=== PATIENT | female | born 1960 | race Caucasian/White ===

== ENCOUNTER → 2023-04-22 06:33 | Day surgery (SDC) | payer BC, SELFPAY | LOC: GI 06:33 | PROVIDERS: ATTENDING PHYSICIAN Specialist | DX: Z12.11 Encounter for screening for malignant neoplasm of colon (principal); K63.5 Polyp of colon; Z86.010 Personal history of colon polyps | CPT/HCPCS: 45385; 88305 ==

== ENCOUNTER → 2023-07-08 07:57 | Outpatient (REF) | payer BC, SELFPAY | LOC: WDC 07:57 | PROVIDERS: ATTENDING PHYSICIAN Physician Assistant Medical | DX: Z12.31 Encounter for screening mammogram for malignant neoplasm of breast (principal) | CPT/HCPCS: 77063; 77067 ==

== ENCOUNTER 2023-08-14 08:36 | Emergency (ER) | payer BC, SELFPAY ==
[2023-08-14 08:38] VITALS: BP 160/81
[2023-08-14 08:56] VITALS: BMI 34.9
[2023-08-14 09:12] LABS: % Basophils 0.1 % (0-2); % Immature Granulocytes 0.2 % (0-0.5); % Lymphocytes 3.4 % (20.5-51.1); % Monocytes 3.9 % (1.7-9.3); % Neutrophils 92.4 % (42.2-75.2); Absolute Lymphocytes 0.3 10^3/uL (1.2-3.4); Absolute Monocytes 0.3 10^3/uL (0.1-0.6); Absolute Neutrophils 7.8 10^3/uL (1.4-6.5); Hematocrit 37.2 % (37.0-47.0); Hemoglobin 13.5 g/dL (12.0-16.0); Mean Corp Hgb Conc. 36.3 g/dL (33.0-37.0); Mean Corpuscular Hgb 32.3 pg (27.0-31.0); Mean Platelet Volume 10.9 fL (7.4-10.4); Nucleated Red Blood Cells % 0 %; Platelet Count 305 10^3/uL (130-400); Red Blood Cell Count 4.18 10^6/uL (4.20-5.40); Red Cell Dist. Width 12.8 % (11.5-14.5); White Blood Cell Count 8.4 10^3/uL (4.8-10.8)
--- NOTE | 2023-08-14 09:14 | ED.GENMED ---
History of Present Illness
General
Chief Complaint: Abdominal Symptoms
Time Seen by Provider: 08/14/23 08:54
History of Present Illness
History of Present Illness:
63-year-old female presents emergency department for evaluation of acute onset of upper abdominal discomfort associated with nausea and vomiting beginning last night. She has been unable to tolerate any p.o. fluids. She states symptoms began
shortly after eating [employer] and her republican has similar symptoms. Reports a moderate headache at this time. No history of abdominal surgeries. No recent international travel.
Past History
Past History
ED Past Medical History: Other (Viral meningitis 20 years ago)
ED Past Surgical History: Orthopedic (left hip replacement)
Social History
Tobacco: Non-smoker
Alcohol: Occasional
Family History
Family History: Other (Mother with multiple sclerosis)
Review of Systems
Review of Systems
Allergies reviewed?: Yes
All Other Systems: ROS reviewed and negative except as documented in HPI and ROS
Phy Exam
Physical Exam
Physical Exam:
GEN: Well appearing, NAD, WDWN
HEENT: Oral mucosa moist, no scleral icterus
Cardiac: Regular rate and rhythm, no murmurs
Lung: No respiratory distress, no tachypnea
Abdomen: Soft, mild tenderness to the epigastrium, no rigidity or peritoneal signs, negative San's
MSK: No gross deformity or injuries
Skin: Good color, no pallor or jaundice, no rashes
Neuro: AO x3, moves all extremities freely
Psych: Calm, cooperative
Course
Orders/Labs/Results
Orders:
Orders
08/14/23 08:48
IV Insert/Care/Rem.- Treatment PRN
08/14/23 09:02
Basic Metabolic Panel Urgent
Complete Blood Count/With Diff Urgent
08/14/23 09:08
0.9% Sodium Chloride 1000 ml [Nss] 1,000 ml IV BOLUS
Ketorolac [Toradol] 15 mg IV NOW STA
Ondansetron Injectable [Zofran] 4 mg IV NOW STA
08/14/23 09:36
Lipase Routine
Mcsiw-Yjko-Rkzdwfv Routine
Potassium Routine
08/14/23 09:42
HYDROmorphone [Dilaudid] 0.5 mg IV NOW STA
Abnormal Lab Results
08/14/23
09:02
RBC 4.18 L 10^6/uL
(4.20-5.40)
MCH 32.3 H pg
(27.0-31.0)
MPV 10.9 H fL
(7.4-10.4)
Absolute Neuts (auto) 7.8 H 10^3/uL
(1.4-6.5)
Absolute Lymphs (auto) 0.3 L 10^3/uL
(1.2-3.4)
Neutrophils % 92.4 H %
(42.2-75.2)
Lymphocytes % 3.4 L %
(20.5-51.1)
Creatinine 0.5 L mg/dL
(0.6-1.0)
Glucose 144 H mg/dl
(70-99)
08/14/23 09:02
08/14/23 09:36
Vital Signs
Initial and Last Documented VS:
Initial Vital Signs
Temp Pulse Resp BP Pulse Ox
97.9 F 79 16 160/81 97
08/14/23 08:38 08/14/23 08:38 08/14/23 08:38 08/14/23 08:38 08/14/23 08:38
Last Documented Vital Signs
Temp Pulse Resp BP Pulse Ox
97.9 F 75 16 124/64 98
08/14/23 08:38 08/14/23 11:01 08/14/23 08:38 08/14/23 11:01 08/14/23 11:01
MDM/Problems Addressed
MDM/Problems Addressed:
Likely self-limited viral syndrome versus food poisoning. No indication for stool culture testing as she is not immunocompromise. Given IV fluids and antiemetics as well as pain medicine in the emergency department. She has a benign abdominal
exam thus do not see any indication for abdominal imaging. Do not suspect biliary disease given lack of right upper quadrant tenderness. Liver function enzymes are reassuring. Discussed supportive care, discharge with antiemetics
*Critical Care Note
Total Time (30-74mins, 75-104mins- exclusive of procedures): Not Applicable
ED Attending Note
-
Portions of this chart may have been created with voice recognition software.� Occasional wrong word or��sound alike� substitutions may have occurred due to the inherent limitations of voice recognition software.
Discharge Plan
Departure
Patient Disposition: Home (Routine Discharge)
Date of Disposition: 08/14/23
Time of Disposition: 10:41
Patient with high blood pressure during this ER visit?: No
Discharge Problem:
Gastroenteritis
Instructions: Food poisoning
Prescriptions:
New
ondansetron 4 mg tablet,disintegrating
4 mg PO TIDPRN PRN (Reason: nausea/vomiting) Qty: 10 0RF
oxycodone 5 mg tablet
5 mg PO Q8H PRN (Reason: Pain) Qty: 8 0RF
No Action
citalopram 10 MG tablet
10 mg PO DAILY
aspirin 325 MG tablet
325 mg PO DAILY Qty: 28 0RF
Rx Instructions:
Take daily x4 weeks for blood clot prevention.
docusate sodium 100 MG capsule
100 mg PO BID 0RF
cholecalciferol (vitamin D3) 2,000 UNITS tablet
2,000 units PO DAILY Qty: 30 0RF
oxycodone 5 MG tablet
5 mg PO Q4HPRN PRN (Reason: moderate-severe pain) Qty: 15 0RF
Patient Comments:
07/08/2020: last filled 06/25/20, 40 tabs for 7 days from [facility]
Rx Instructions:
1 tab moderate pain or 2 if pain severe
Dx total joint replacement
ongoing therapy
gabapentin 100 MG capsule
200 mg PO BID Qty: 20 0RF
Rx Instructions:
Take twice a day for neuropathic pain
famotidine 20 MG tablet
20 mg PO HS Qty: 14 0RF
Rx Instructions:
Take nightly while on Meloxicam.
acetaminophen [Tylenol Extra Strength] 500 MG tablet
1,000 mg PO Q6HPRN PRN (Reason: mild pain)
sennosides [senna] 1 TABLET tablet
2 tab PO HS Qty: 30 0RF
levofloxacin 750 mg tablet
750 mg PO DAILY Qty: 6 0RF
Referrals:
Steven Salazar PA-C [Family Provider] -
Interventions
Interventions:
*Risk Screen - Suicide Last Done: 08/14/23 09:06
*General Assessment Last Done: 08/14/23 09:06
*Neglect/Abuse Screening Last Done: 08/14/23 09:06
ED- Fall Risk Assessment Last Done: 08/14/23 11:03
*ED COVID-19 Vaccine History Last Done: 08/14/23 08:38
*Nursing Disposition Last Done: 08/14/23 11:03
KT-Pizylo-Qhqwkzzkfc Assessment Last Done: 08/14/23 09:06
Discharge Date and Time
Discharge Date/Time: 08/14/23 11:05
Print Language: SINHALA
[2023-08-14] MEDS: TORADOL 15 MG IV (09:17)
[2023-08-14] MEDS: NSS 1000 IV (09:17)
[2023-08-14] MEDS: ZOFRAN 4 MG IV (09:17)
[2023-08-14 09:32] LABS: Blood Urea Nitrogen 16 mg/dl (7-17); Calcium 8.8 mg/dl (8.4-10.2); Carbon Dioxide 23 mmol/L (22-30); Chloride 107 mmol/L (98-107); Estimated Creatinine Clearance 104 ml/min; Glucose 144 mg/dl (70-99); Sodium 138 mmol/L (135-145); eGFR > 60.00
[2023-08-14] MEDS: DILAUDID 0.5 MG IV (09:51)
[2023-08-14 10:02] LABS: ALT (SGPT) 16 U/L (0-35); AST (SGOT) 22 U/L (14-36); Alkaline Phosphatase 59 U/L (38-126); Direct Bilirubin 0.2 mg/dl (0.0-0.4); Lipase 47 U/L (23-300); Potassium 3.9 mmol/L (3.5-5.1); Total Bilirubin 1.1 mg/dl (0.2-1.3); Total Protein 6.5 g/dl (6.3-8.2)
[2023-08-14 11:01] VITALS: BP 124/64
== END 2023-08-14 11:05 | disposition home or self-care (01) ==
LOC: EMR 08:36
PROVIDERS: EMERGENCY PHYSICIAN Emergency Medicine; FAMILY PHYSICIAN Physician Assistant Medical
DX: K52.9 Noninfective gastroenteritis and colitis, unspecified (principal); R51.9 Headache, unspecified; Z86.61 Personal history of infections of the central nervous system; Z96.642 Presence of left artificial hip joint; Z79.82 Long term (current) use of aspirin; Z88.1 Allergy status to other antibiotic agents; Z88.2 Allergy status to sulfonamides; Z91.048 Other nonmedicinal substance allergy status
CPT/HCPCS: 99284; 96374; 96375 ×2; 96361; 80048; 80076; 83690; 84132; 85025

== ENCOUNTER → 2023-12-27 14:12 | Outpatient (REF) | payer BC, SELFPAY | LOC: HWRAD 14:12 | PROVIDERS: ATTENDING PHYSICIAN Physician Assistant Medical | DX: R10.33 Periumbilical pain (principal); R19.7 Diarrhea, unspecified | CPT/HCPCS: 36415; 74178; 80053; 82150; 83690; 85025; Q9967 ==

== ENCOUNTER 2024-02-08 06:18 | Day surgery (SDC) | payer BC, SELFPAY | END 2024-02-08 12:45 | disposition home or self-care (01) | LOC: GI 06:18 | PROVIDERS: ATTENDING PHYSICIAN Specialist; FAMILY PHYSICIAN Physician Assistant Medical | DX: R10.13 Epigastric pain (principal); K31.7 Polyp of stomach and duodenum; K22.89 Other specified disease of esophagus | CPT/HCPCS: 43239; 88305; 88342 ==

== ENCOUNTER → 2024-02-23 09:29 | Outpatient (REF) | payer BC, SELFPAY | LOC: HWRAD 09:29 | PROVIDERS: ATTENDING PHYSICIAN Specialist; FAMILY PHYSICIAN Physician Assistant Medical | DX: R10.13 Epigastric pain (principal) | CPT/HCPCS: 76700 ==

== ENCOUNTER → 2024-07-27 07:52 | Outpatient (REF) | payer BC, SELFPAY | LOC: WDC 07:52 | PROVIDERS: ATTENDING PHYSICIAN Physician Assistant Medical | DX: Z12.31 Encounter for screening mammogram for malignant neoplasm of breast (principal) | CPT/HCPCS: 77063; 77067 ==

== ENCOUNTER 2024-10-04 16:02 | Emergency (ER) | payer BC, SELFPAY ==
[2024-10-04 16:04] VITALS: BP 141/81
[2024-10-04 16:22] LABS: Hematocrit 38.8 % (37.0-47.0); Hemoglobin 13.2 g/dL (12.0-16.0); Mean Corp Hgb Conc. 34.0 g/dL (33.0-37.0); Mean Corpuscular Volume 91.3 fL (81.0-99.0); Nucleated Red Blood Cells % 0 %; Platelet Count 204 10^3/uL (130-400); Red Cell Dist. Width 12.6 % (11.5-14.5)
[2024-10-04 16:41] LABS: ALT (SGPT) 16 U/L (0-35); AST (SGOT) 19 U/L (14-36); Albumin 4.3 g/dl (3.5-5.0); Alkaline Phosphatase 51 U/L (38-126); Blood Urea Nitrogen 17 mg/dl (7-17); Calcium 9.1 mg/dl (8.4-10.2); Carbon Dioxide 24 mmol/L (22-30); Chloride 106 mmol/L (98-107); Glucose 123 mg/dl (70-99); Lipase 61 U/L (23-300); Potassium 4.1 mmol/L (3.5-5.1); Sodium 135 mmol/L (135-145); Total Protein 6.9 g/dl (6.3-8.2); eGFR > 60.00
[2024-10-04 20:27] VITALS: BMI 34.9
[2024-10-04 20:30] VITALS: BP 139/73
--- NOTE | 2024-10-04 20:55 | ED.GENMED ---
History of Present Illness
General
Chief Complaint: Abdominal Pain
Source: patient
Exam Limitations: none
Time Seen by Provider: 10/04/24 20:36
History of Present Illness
History of Present Illness:
64-year-old female presents with upper abdominal pain that radiates to the back more so on the right side that started this morning. The pain has been constant with associated vomiting. No relief of her pain. She states the vomiting has slowed
the nausea persist. No diarrhea. No fever. No known sick contacts. No prior abdominal surgical history. She denies any blood in the vomit. No other complaints at this time
Past History
Past History
ED Past Medical History: Other (Viral meningitis 20 years ago)
ED Past Surgical History: Orthopedic (left hip replacement)
Social History
Tobacco: Non-smoker
Alcohol: Occasional
Family History
Family History: Other (Mother with multiple sclerosis)
Phy Exam
Physical Exam
Physical Exam:
General: Well-appearing female no acute respiratory distress
HEENT: Normocephalic atraumatic
Heart: Regular rate and rhythm
Lungs: Clear no wheeze
Abdomen is soft but tender to the epigastric region and mildly to the right upper quadrant. Negative San sign no guarding nontender of the lower abdomen
Extremities: No cyanosis or edema
Skin: Warm no rash
Course
Orders/Labs/Results
Orders:
Orders
10/04/24 16:15
Complete Blood Count/With Diff Urgent
Comprehensive Metabolic Panel Urgent
Lipase Urgent
10/04/24 20:54
CT Abd/pelvis W Iv Cont Urgent
Comment:
Reason For Exam: abdominal pain, vomiting
0.9% Sodium Chloride 1000 ml [Nss] 1,000 ml IV BOLUS
Famotidine [Pepcid] 20 mg IV NOW STA
Ondansetron Injectable [Zofran] 4 mg IV NOW STA
10/04/24 21:31
Urinalysis Reflex To Culture Urgent
Date Specimen was Collected: 10/04/24
Time Specimen was Collected: 21:27
Urine Microscopic Reflex Cult Urgent
Abnormal Lab Results
10/04/24 10/04/24
16:15 21:31
MCH 31.1 H pg
(27.0-31.0)
Absolute Lymphs (auto) 0.8 L 10^3/uL
(1.2-3.4)
Neutrophils % 80.9 H %
(42.2-75.2)
Lymphocytes % 11.6 L %
(20.5-51.1)
Creatinine 0.5 L mg/dL
(0.6-1.0)
Glucose 123 H mg/dl
(70-99)
Urine Ketones 1+ A
(Negative)
Ur Occult Blood Reflex 1+ A
(Negative)
Urine Bacteria (Reflex) Few A
(Negative)
10/04/24 16:15
10/04/24 16:15
Vital Signs
Initial and Last Documented VS:
Initial Vital Signs
Temp Pulse Resp BP Pulse Ox
98.2 F 89 18 141/81 97
10/04/24 16:04 10/04/24 16:04 10/04/24 16:04 10/04/24 16:04 10/04/24 16:04
Last Documented Vital Signs
Temp Pulse Resp BP Pulse Ox
98.2 F 73 13 112/79 99
10/04/24 16:04 10/04/24 21:30 10/04/24 21:00 10/04/24 21:00 10/04/24 21:30
MDM/Problems Addressed
Differential Diagnosis Includes:
Abdominal pain with vomiting. Consider biliary colic versus pancreatitis versus constipation versus bowel obstruction versus gastritis versus viral illness
. Tender on exam. Will order CT scan lipase is normal liver functions are normal. Fluids Pepcid and Zofran ordered
*Pulse Oximetry
SaO2: 98
Oxygen Mode of Delivery: Room air
Patient hypoxic: no
*Critical Care Note
Total Time (30-74mins, 75-104mins- exclusive of procedures): Not Applicable
Update Note
Update Note:
CT negative. Patient feeling slightly improved after fluids nausea is gone. Suspect gastritis or viral illness. No indication for admission. Will discharge home with Zofran
ED Attending Note
-
Portions of this chart may have been created with voice recognition software.� Occasional wrong word or��sound alike� substitutions may have occurred due to the inherent limitations of voice recognition software.
Discharge Plan
Departure
Patient Disposition: Home (Routine Discharge)
Date of Disposition: 10/04/24
Time of Disposition: 22:20
Patient with high blood pressure during this ER visit?: No
Discharge Problem:
Vomiting
Instructions: Nausea and Vomiting, Adult (DC)
Prescriptions:
New
ondansetron 4 mg tablet,disintegrating
4 mg PO Q8H PRN (Reason: nausea and vomiting) Qty: 10 0RF
No Action
citalopram 10 MG tablet
10 mg PO DAILY
aspirin 325 MG tablet
325 mg PO DAILY Qty: 28 0RF
Rx Instructions:
Take daily x4 weeks for blood clot prevention.
docusate sodium 100 MG capsule
100 mg PO BID 0RF
cholecalciferol (vitamin D3) 2,000 UNITS tablet
2,000 units PO DAILY Qty: 30 0RF
oxycodone 5 MG tablet
5 mg PO Q4HPRN PRN (Reason: moderate-severe pain) Qty: 15 0RF
Patient Comments:
07/08/2020: last filled 06/25/20, 40 tabs for 7 days from [facility]
Rx Instructions:
1 tab moderate pain or 2 if pain severe
Dx total joint replacement
ongoing therapy
gabapentin 100 MG capsule
200 mg PO BID Qty: 20 0RF
Rx Instructions:
Take twice a day for neuropathic pain
famotidine 20 MG tablet
20 mg PO HS Qty: 14 0RF
Rx Instructions:
Take nightly while on Meloxicam.
acetaminophen [Tylenol Extra Strength] 500 MG tablet
1,000 mg PO Q6HPRN PRN (Reason: mild pain)
sennosides [senna] 1 TABLET tablet
2 tab PO HS Qty: 30 0RF
levofloxacin 750 mg tablet
750 mg PO DAILY Qty: 6 0RF
ondansetron 4 mg tablet,disintegrating
4 mg PO TIDPRN PRN (Reason: nausea/vomiting) Qty: 10 0RF
oxycodone 5 mg tablet
5 mg PO Q8H PRN (Reason: Pain) Qty: 8 0RF
Referrals:
Steven Salazar PA-C [Family Provider, Family Practice]
Activity Restrictions/Additional Instructions:
Drink plenty clear liquids. Use Zofran if needed for nausea. Advance to bland diet as tolerated. Return if worse otherwise follow-up with your doctor
Interventions
Interventions:
*Risk Screen - Suicide Last Done: 10/04/24 16:07
*General Assessment Last Done: 10/04/24 16:07
*Neglect/Abuse Screening Last Done: 10/04/24 16:07
*ED- Fall Risk Assessment Last Done: 10/04/24 20:46
*ED COVID-19 Vaccine History Last Done: 10/04/24 16:07
NN-Bniuan-Uepbtecdbg Assessment Last Done: 10/04/24 20:46
Discharge Date and Time
Print Language: MALAGASY
[2024-10-04 21:00] VITALS: BP 112/79
[2024-10-04 21:36] LABS: Urine Character Clear (Clear)
[2024-10-04 21:44] LABS: Urine Red Blood Cell 0-2 /HPF (0-2); Urine Squamous Cell 0-2 /LPF (Few); Urine White Cell 0-2 /HPF (0-5)
[2024-10-04 22:23] VITALS: BP 143/74
== END 2024-10-04 23:03 | disposition home or self-care (01) ==
LOC: EMR 16:02
PROVIDERS: Emergency Medicine; Physician Assistant; EMERGENCY PHYSICIAN Student in an Organized Health Care Education/Training Program; FAMILY PHYSICIAN Physician Assistant Medical
DX: R11.2 Nausea with vomiting, unspecified (principal); R10.10 Upper abdominal pain, unspecified
CPT/HCPCS: 99284; 74177; 80053; 81003; 81015; 83690; 85025; Q9967

== ENCOUNTER → 2024-11-09 09:13 | Outpatient (REF) | payer BC, SELFPAY ==
[2024-11-09 16:28] LABS: C-Reactive Protein < 5.00 mg/L (0.0-10.00)
== END ==
LOC: HWRAD 09:13
PROVIDERS: ATTENDING PHYSICIAN Physician Assistant Medical; FAMILY PHYSICIAN Physician Assistant Medical
DX: Z96.642 Presence of left artificial hip joint (principal)
CPT/HCPCS: 36415; 85652; 86140

== ENCOUNTER 2024-12-11 10:02 | Emergency (ER) | payer BC, SELFPAY ==
[2024-12-11 10:13] VITALS: BP 138/89
--- NOTE | 2024-12-11 11:48 | ED.GENMED ---
History of Present Illness
General
Chief Complaint: Swelling
Source: patient and physician
Exam Limitations: none
Time Seen by Provider: 12/11/24 10:53
Nursing documentation reviewed up to this point in time: agreed with
History of Present Illness
History of Present Illness:
64-year-old female with history of viral meningitis 2001, depression presents from doctor's office for left neck lymphadenopathy.patient states she noted the swelling starting 4 days ago and gradually getting worse. She states she does not feel
sick but her eyes and nose are watering and 'it is affecting my voice a little.' She states her throat is not sore and she does not feel any swelling inside her throat, she has no trouble swallowing. She has had no fever or chills. No recent
illnesses.
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
Past History
Past History
ED Past Medical History: Hypercholesterolemia and Other (Viral meningitis 20 years ago, history of depression on Celexa)
ED Past Surgical History: Orthopedic (left hip replacement)
Social History
Tobacco: Non-smoker
Alcohol: Occasional
Personal: Single
Living: alone
Employment: Employed
Family History
Family History: Other (Mother with multiple sclerosis)
Review of Systems
Review of Systems
Allergies reviewed?: Yes
All Other Systems: ROS reviewed and negative except as documented in HPI and ROS
Constitutional: Denies fever or chills
EENT: Reports other (No dental pain, no ear pain, no sinus stuffiness); Denies sore throat or mouth swelling
Phy Exam
Physical Exam
Physical Exam:
GENERAL: No acute distress. A&Ox3.
CONSTITUTIONAL: Afebrile.
Neck: left side of neck. lymph node is 3.5 cm long by 3 cm wide. Mildly tender. No trismus, speaking and swallowing well.
EYES: clear, conjunctivae normal
ENMT: moist mucus membranes, Pharynx nl
RESPIRATORY: Regular respirations, nonlabored, lungs clear.
CARDIOVASCULAR: Regular rate and rhythm, no murmurs, no rubs.
GI: Soft, nontender, normal BS
MUSCULOSKELETAL: Moves with ease. Well perfused.
SKIN: Warm, dry, pink
PSYCH: Normal mood and affect. Well kept, interactive and appropriate
NEUROLOGIC: Awake, alert and oriented. No focal neurological deficits
Scores
Heart Failure Risk
Heart Failure Risk Score: Not Applicable
Course
Orders/Labs/Results
Orders:
Orders
12/11/24 12:02
CT Neck With Iv Contrast Urgent
Comment:
Reason For Exam: Mass left neck
12/11/24 12:07
Complete Blood Count/With Diff Urgent
Comprehensive Metabolic Panel Urgent
12/11/24 14:30
Consult Interventional Radiology [IRAD CONSULT] Urgent
Consulting Provider: Rigo Montiel
Was physician already notified: Yes
Procedure being ordered, including laterality if applicable: L neck mass
Acknowledgement that appropriate orders are entered: Yes
Abnormal Lab Results
12/11/24
12:07
WBC 4.1 L 10^3/uL
(4.8-10.8)
RBC 4.02 L 10^6/uL
(4.20-5.40)
MCHC 31.9 L g/dL
(33.0-37.0)
Absolute Lymphs (auto) 1.1 L 10^3/uL
(1.2-3.4)
Monocytes % 11.6 H %
(1.7-9.3)
12/11/24 12:07
12/11/24 12:07
Vital Signs
Initial and Last Documented VS:
Initial Vital Signs
Temp Pulse Resp BP Pulse Ox
98.3 F 73 18 138/89 98
12/11/24 10:13 12/11/24 10:13 12/11/24 10:13 12/11/24 10:13 12/11/24 10:13
Last Documented Vital Signs
Temp Pulse Resp BP Pulse Ox
98.3 F 82 20 133/77 96
12/11/24 10:13 12/11/24 15:00 12/11/24 15:00 12/11/24 15:00 12/11/24 14:30
MDM/Problems Addressed
Differential Diagnosis Includes:
abscess, lymph node swelling, mass
MDM/Problems Addressed:
64-year-old female with history of viral meningitis 2001, depression presents from doctor's office for left neck lymphadenopathy.patient states she noted the swelling starting 4 days ago and gradually getting worse. She states she does not feel
sick but her eyes and nose are watering and 'it is affecting my voice a little.' She states her throat is not sore and she does not feel any swelling inside her throat, she has no trouble swallowing. She has had no fever or chills. No recent
illnesses.
Afebrile, NAD
2:25 PM:
CBC, CMP with no clinically significant abnormality
CT of neck with IV contrast: Essentially low-attenuation area with thickened periphery within the soft tissues of the left neck, deep to the left sternocleidomastoid muscle and superior to the left internal jugular vein measuring approximately 2.0 x
1.3 x 1.8 cm without air bubbles within. Some of several differential diagnostic possibilities include mass with possible central necrosis, necrotic lymph node or inflammatory/infectious process including abscess.
Spoke with radiologist Dr. Olmstead who recommends aspiration/drainage by IR
Case discussed with Dr. Kurtz who agrees
Patient is nontoxic-appearing, comfortable, no sign of significant infection, no respiratory embarrassment, no trouble speaking or swallowing, denies feeling swelling in her throat
IR cannot do patient today as her schedule is full. Dr. Montiel recommended patient call to make an appointment for outpatient procedure
I discussed and read patient the radiology impression and differentials, all her questions were answered, I gave her a copy of the report.
Patient called outpatient IR from her room while I was in there, we spoke with Claudia and she states she can get the patient in maybe tomorrow (Tue) but patient states she has a very important business meeting tomorrow and so Claudia says she can
definitely get her in or Tuesday. Pt fine with this
Return instructions reviewed and patient understands
Rx for Augmentin sent to her pharmacy. She states she has tolerated this medicine in the past. Although amoxicillin is listed as allergy with hives she states she has taken it since with no side effects.
*Pulse Oximetry
SaO2: 98
Oxygen Mode of Delivery: Room air
Patient hypoxic: no
*Critical Care Note
Total Time (30-74mins, 75-104mins- exclusive of procedures): Not Applicable
ED Attending Note
-
Portions of this chart may have been created with voice recognition software.� Occasional wrong word or��sound alike� substitutions may have occurred due to the inherent limitations of voice recognition software.
Discharge Plan
Departure
Patient Disposition: Home (Routine Discharge)
Date of Disposition: 12/11/24
Time of Disposition: 14:46
Patient with high blood pressure during this ER visit?: No
Condition: Good
Discharge Problem:
Mass of left side of neck
Prescriptions:
New
amoxicillin-pot clavulanate 875-125 mg tablet
1 tab PO BID Qty: 14 0RF
No Action
citalopram 10 MG tablet
10 mg PO DAILY
aspirin 325 MG tablet
325 mg PO DAILY Qty: 28 0RF
Rx Instructions:
Take daily x4 weeks for blood clot prevention.
docusate sodium 100 MG capsule
100 mg PO BID 0RF
cholecalciferol (vitamin D3) 2,000 UNITS tablet
2,000 units PO DAILY Qty: 30 0RF
oxycodone 5 MG tablet
5 mg PO Q4HPRN PRN (Reason: moderate-severe pain) Qty: 15 0RF
Patient Comments:
07/08/2020: last filled 06/25/20, 40 tabs for 7 days from [facility]
Rx Instructions:
1 tab moderate pain or 2 if pain severe
Dx total joint replacement
ongoing therapy
gabapentin 100 MG capsule
200 mg PO BID Qty: 20 0RF
Rx Instructions:
Take twice a day for neuropathic pain
famotidine 20 MG tablet
20 mg PO HS Qty: 14 0RF
Rx Instructions:
Take nightly while on Meloxicam.
acetaminophen [Tylenol Extra Strength] 500 MG tablet
1,000 mg PO Q6HPRN PRN (Reason: mild pain)
sennosides [senna] 1 TABLET tablet
2 tab PO HS Qty: 30 0RF
levofloxacin 750 mg tablet
750 mg PO DAILY Qty: 6 0RF
ondansetron 4 mg tablet,disintegrating
4 mg PO TIDPRN PRN (Reason: nausea/vomiting) Qty: 10 0RF
oxycodone 5 mg tablet
5 mg PO Q8H PRN (Reason: Pain) Qty: 8 0RF
ondansetron 4 mg tablet,disintegrating
4 mg PO Q8H PRN (Reason: nausea and vomiting) Qty: 10 0RF
Referrals:
Steven Salazar PA-C [Family Provider, Family Practice]
Activity Restrictions/Additional Instructions:
As we discussed and as was discussed with Claudia in the interventional radiology department , she will call you tomorrow to set up a day for the procedure either or Tuesday.
Return here immediately for trouble breathing, trouble swallowing, fever above 100.5 not relieved with Tylenol or Ibuprofen, vomiting or feeling sicker in any way.
Interventions
Interventions:
*Risk Screen - Suicide Last Done: 12/11/24 10:16
*General Assessment Last Done: 12/11/24 12:05
*Neglect/Abuse Screening Last Done: 12/11/24 10:16
*ED COVID-19 Vaccine History Last Done: 12/11/24 10:17
*ED Influenza Vaccine History Last Done: 12/11/24 10:17
*Nursing Disposition Last Done: 12/11/24 15:16
ED- Cardiac Assessment Last Done: 12/11/24 12:10
ED- Pulmonary Assessment Last Done: 12/11/24 12:06
ED-Skin Assessment Last Done: 12/11/24 12:06
Discharge Date and Time
Discharge Date/Time: 12/11/24 15:26
Print Language: PORTUGUESE
[2024-12-11 12:08] VITALS: BP 140/73
[2024-12-11 12:09] VITALS: BP 140/73
[2024-12-11 12:30] LABS: Hematocrit 38.9 % (37.0-47.0); Hemoglobin 12.4 g/dL (12.0-16.0); Mean Corp Hgb Conc. 31.9 g/dL (33.0-37.0); Mean Corpuscular Volume 96.8 fL (81.0-99.0); Nucleated Red Blood Cells % 0 %; Platelet Count 186 10^3/uL (130-400); Red Cell Dist. Width 12.8 % (11.5-14.5)
[2024-12-11 13:00] VITALS: BP 129/71
[2024-12-11 13:04] LABS: ALT (SGPT) 17 U/L (0-35); AST (SGOT) 19 U/L (14-36); Albumin 3.9 g/dl (3.5-5.0); Alkaline Phosphatase 60 U/L (38-126); Blood Urea Nitrogen 14 mg/dl (7-17); Calcium 9.0 mg/dl (8.4-10.2); Carbon Dioxide 29 mmol/L (22-30); Chloride 105 mmol/L (98-107); Glucose 94 mg/dl (70-99); Potassium 4.1 mmol/L (3.5-5.1); Sodium 135 mmol/L (135-145); Total Protein 6.8 g/dl (6.3-8.2); eGFR > 60.00
[2024-12-11 14:00] VITALS: BP 146/82
[2024-12-11 15:00] VITALS: BP 133/77
== END 2024-12-11 15:26 | disposition home or self-care (01) ==
LOC: EMR 10:02
PROVIDERS: Registered Nurse; CONSULT PHYSICIAN Radiology Vascular & Interventional Radiology; EMERGENCY PHYSICIAN Emergency Medicine; FAMILY PHYSICIAN Physician Assistant Medical
DX: R22.1 Localized swelling, mass and lump, neck (principal); E78.00 Pure hypercholesterolemia, unspecified
CPT/HCPCS: 99284; 70491; 80053; 85025; Q9967

== ENCOUNTER → 2024-12-14 12:25 | Outpatient (REF) | payer BC, SELFPAY ==
[2024-12-14 12:58] VITALS: BP 137/72; BP_SYST 70
== END ==
LOC: RADI 12:25
PROVIDERS: ATTENDING PHYSICIAN Physician Assistant Medical
DX: C77.0 Secondary and unspecified malignant neoplasm of lymph nodes of head, face and neck (principal); C80.1 Malignant (primary) neoplasm, unspecified
CPT/HCPCS: 20206; 76942; 88305; 88333; 88341; 88342